=== PATIENT | female | born 1990 | race Caucasian/White ===

== ENCOUNTER 2018-04-25 12:22 | Emergency (ER) | payer OTHER ==
[~2018-04-25] VITALS: Ht 175.3 cm; Wt 65.8 kg
[2018-04-25] MEDS ORDERED: OSEL75CA PO (16:13)
[2018-04-25] MEDS ORDERED: TUSSI PRES-B L120 M1 PO (16:13)
== END 2018-04-25 16:34 | disposition home or self-care (01) ==
LOC: ER 12:22
DX: J11.1 Influenza due to unidentified influenza virus with other respiratory manifestations (principal); B34.9 Viral infection, unspecified